=== PATIENT | female | born 1980 | race Caucasian/White ===

== ENCOUNTER 2016-10-04 15:49 | Outpatient (CLI) ==
[2014-10-19 08:24] VITALS: BMI 21.1
[2016-10-04 16:07] LABS: BASOPHILS % (AUTO) 0.3 % (0.0-3.0); EOSINOPHILS # (AUTO) 0.1 K/ul (0.0-0.7); EOSINOPHILS % (AUTO) 0.8 % (0.0-7.0); HEMATOCRIT 35.7 % (37.0-47.0); IMMATURE GRANULOCYTE % (AUTO) 0.2 % (0.0-5.0); LYMPHOCYTES % (AUTO) 31.7 (10.0-50.0); MEAN CORPUSCULAR HEMOGLOBIN 31.5 pg (27.0-31.0); MEAN CORPUSCULAR HGB CONC 33.6 (31.8-35.4); MEAN CORPUSCULAR VOLUME 93.7 fl (81.0-99.0); MONOCYTES # (AUTO) 0.6 K/uL (0.4-2.0); MONOCYTES % (AUTO) 6.6 (0-10); NEUTROPHILS # (AUTO) 5.7 K/ul (2.0-6.9); NEUTROPHILS % (AUTO) 60.4; PLATELET COUNT 290 10^3/uL (140-440); RED BLOOD COUNT 3.81 10^6/ul (4.20-5.40)
[2016-10-04 16:27] LABS: ALBUMIN 4.2 g/dL (3.4-5.0); ALBUMIN/GLOBULIN RATIO 1.31; ANION GAP 13.8; BILIRUBIN,TOTAL 0.4 mg/dL (0.00-1.20); BUN/CREATININE RATIO 22.97; CALCIUM 9.4 mg/dL (8.2-10.2); CREATININE 0.74 mg/dL (0.60-1.30); POTASSIUM 3.8 mmol/L (3.5-5.10); TOTAL PROTEIN 7.4 g/dL (6.4-8.2)
--- NOTE | 2016-10-04 16:50 | DI ---
EXAM: Single view of the abdomen. History: Generalized abdominal pain. Findings: Nonspecific but nonobstructive bowel gas pattern. Radiopacity in the pelvis is probably a mildly distended bladder. Moderate colonic stool. No free intraperitoneal air. Linear wires seen within the pelvis are probably fallopian tube occlusion devices. Facet arthropathy seen within the lower lumbar spine. No suspicious calcifications. Impression: No acute radiographic findings within the abdomen.
== END 2016-10-04 15:50 | disposition home or self-care (01) ==
LOC: RAD 15:49
PROVIDERS: ATTEND Nurse Practitioner Family
DX: R10.84 Generalized abdominal pain (principal)
CPT/HCPCS: 36415; 80053; 82150; 83690; 85025

== ENCOUNTER 2018-09-05 17:54 | Emergency (ER) ==
[2018-09-05 18:12] VITALS: BP 114/66; TEMP 97.6
--- NOTE | 2018-09-05 21:58 | ED.PDOC ---
General ED Provider: Dr. SOFÍA TONY Chief Complaint: Non-specific Complaint Stated Complaint: has an old isue with gallblader and anxiety.Concerned about chest as well. Time Seen by Physician: 23:26 Mode of Arrival: Wheelchair Information Source: Patient Exam Limitations: No limitations Primary Care Provider: KENNETH MALAGON Referred to ED by: Other Nursing and Triage Documentation Reviewed and Agree: Yes Does patient meet sepsis criteria?: No System Inflammatory Response Syndrome: Not Applicable Sepsis Protocol: For patient's 13 years and over: Temp is 96.8 and below OR 101 and greater Pulse >90 BPM Resp >20/minute Acutely Altered Mental Status Are patient's symptoms suggestive of a new infection, such as: -Pneumonia -Skin, Soft Tissue -Endocarditis -UTI -Bone, Joint Infection -Implantable Device -Acute Abdominal Infection -Wound Infection -Meningitis -Blood Stream Catheter Infection -Unknown GI Complaint Exam - Abdominal Pain Complaint/Exam Onset: Gradual Duration: chronic Symptoms Are: Resolved Timing: Intermittent Initial Severity: Mild Current Severity: Mild Location of Pain: Diffuse Radiates To: Reports: Chest Character: Reports: Aching Aggravating: Reports: Position, Eating Alleviating: Reports: Rest Associated Signs and Symptoms: Reports: Chest pain Related History: Reports: Similar episode Cardiac Risk Factors: Reports: None Ectopic Risk Factors: Reports: None Related Surgical History: Reports: None Abdominal Findings: Present: Other Differential Diagnoses: Constipation Review of Systems - Review Of Systems Constitutional: Reports: No symptoms Eyes: Reports: No symptoms Ears, Nose, Mouth, Throat: Reports: No symptoms Respiratory: Reports: No symptoms Cardiac: Reports: No symptoms GI: Reports: No symptoms : Reports: No symptoms Musculoskeletal: Reports: No symptoms Skin: Reports: No symptoms Neurological: Reports: No symptoms Endocrine: Reports: No symptoms Hematologic/Lymphatic: Reports: No symptoms All Other Systems: Reviewed and Negative Past Medical History - Past Medical History Previously Healthy: Yes Endocrine: Reports: None Cardiovascular: Reports: None Respiratory: Reports: None Hematological: Reports: None Gastrointestinal: Reports: None Genitourinary: Reports: None Neuro/Psych: Reports: None Musculoskeletal: Reports: None Cancer: Reports: None Last Menstrual Period: last week - Surgical History General Surgical History: Reports: None - Family History Family History: Reports: None - Social History Smoking Status: Current every day smoker, Never smoker, Vaping Smoking Cessation Counseling Time: > 3 min - 10 min Hx Substance Use: No Alcohol Screening: Occasionally Lives: With family - Immunizations Tetanus Shot up to Date: Yes Influenza Vaccine within 12 Months: No Pneumococcal Vaccine up to Date: No Physical Exam - Physical Exam Appearance: Well-appearing Ill-appearing: None Pain Distress: None Eyes: TITO ENT: Ears normal Neck: Supple Respiratory: Airway patent Cardiovascular: RRR GI/: Soft Musculoskeletal: Normal strength Neurological: Sensation intact Critical Care Note - Critical Care Note Total Time (mins): 0 Course - Course Hematology/Chemistry: 09/05/18 22:20 09/05/18 22:20 Orders, Labs, Meds: Lab Review 09/05/18 09/05/18 09/05/18 22:20 22:20 22:25 WBC 9.49 RBC 3.92 L Hgb 12.0 Hct 35.2 L MCV 89.8 MCH 30.6 MCHC 34.1 RDW Coeff of Jacklyn 11.9 Plt Count 301 Immature Gran % (Auto) 0.2 Neut % (Auto) 67.8 Lymph % (Auto) 25.1 Forrest % (Auto) 6.6 Eos % (Auto) 0.1 Baso % (Auto) 0.2 Immature Gran # (Auto) 0.0 Neut # (Auto) 6.4 Lymph # (Auto) 2.4 Forrest # (Auto) 0.6 Eos # (Auto) 0.0 Baso # (Auto) 0.0 D-Dimer (Manual) 123.36 Sodium 140.0 Potassium 4.10 Chloride 105.0 Carbon Dioxide 25.0 Anion Gap 14.10 BUN 12.0 Creatinine 0.60 Estimated GFR (MDRD) 112.00 BUN/Creatinine Ratio 20.00 Glucose 91.0 Calcium 9.60 Total Bilirubin 0.40 AST 30.0 ALT 23.0 Alkaline Phosphatase 65.0 Total Protein 7.40 Albumin 4.30 Globulin 3.10 Albumin/Globulin Ratio 1.38 Orders Category Date Time Status EKG-(ED ONLY) Stat CARDIO 09/05/18 20:36 Completed CBC W/ AUTO DIFF Stat LAB 09/05/18 22:20 Completed CMP [COMPREHENSIVE METABOLIC PANEL] Stat LAB 09/05/18 22:20 Completed D-DIMER Stat LAB 09/05/18 22:25 Completed CHEST, 2 VIEWS PA & LAT Stat RADS 09/05/18 22:05 Completed Vital Signs: Temp Pulse Resp BP Pulse Ox 02/06/19 17:55 97.6 F 79 22 114/66 100 Departure - Departure Time of Disposition: 23:23 Disposition: HOME SELF-CARE Discharge Problem: Anxiety Condition: Good Pt referred to PMD for follow-up: No (follpow with PCP of choice) IPMP verified?: No Allergies/Adverse Reactions: Allergies bridgett Allergy (Severe, Verified 09/05/18 18:12) Hives Drugstore aware Home Medications: Ambulatory Orders 1 [No Reported Medications] 10/19/14 Epinephrine 1 mg IJ PRN vial 10/04/16 Disposition Discussed With: Patient, Family
--- NOTE | 2018-09-05 23:06 | DI ---
EXAM: PA and lateral views of the chest. HISTORY: Chest pain. FINDINGS: The bones are unremarkable. The cardiac silhouette and pulmonary vasculature are within no rmal limits. The costophrenic angles are clear. No infiltrate or consolidation. Impression: No acute cardiopulmonary disease.
== END 2018-09-06 00:05 | disposition home or self-care (01) ==
LOC: ED 17:54
DX: F41.9 Anxiety disorder, unspecified (principal); F17.210 Nicotine dependence, cigarettes, uncomplicated
CPT/HCPCS: 36415; 80053; 85025; 85379; 93005; 93010; 99283